=== PATIENT | female | born 1985 | race Caucasian/White ===

== ENCOUNTER 2017-09-02 22:22 | Emergency (ER) | payer MEDICAID ==
[2017-09-02] MEDS ORDERED: Cephalexin 500 MG Cap ONE (22:55)
--- NOTE | 2017-09-03 09:45 | EDM.PDOC ---
ED HPI GENERAL MEDICAL PROBLEM - General Chief Complaint: Upper Extremity Injury/Pain Stated Complaint: PAIN AFTER SURGERY Time Seen by Provider: 09/02/17 22:42 Source of Information: Reports: Patient History Limitations: Reports: No Limitations - History of Present Illness INITIAL COMMENTS - FREE TEXT/NARRATIVE: According to patient she had left hand CTS surgery [address] [facility]. She claims she has been doing some hand exercises for past 1 wk. She has noticed swelling over the palmar aspect of the wrist for 1 wk now. She got concerned that there might be infection and hence she came into emergency room to be seen. No tingling or numbness. No weakness in the hand. No swelling of the finger. No fever or chills. 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, NSAIDS Right Wrist Pain Score (Numeric/FACES): 7 - Related Data Allergies Allergy/AdvReac Type Severity Reaction Status Date / Time Penicillins Allergy Cannot Verified 09/02/17 22:39 Remember Home Meds: Home Meds NK [No Known Home Meds] 09/02/17 [History] Past Medical History HEENT History: Reports: Other (See Below) Other HEENT History: Tonsillitis Cardiovascular History: Reports: None Respiratory History: Reports: PE Gastrointestinal History: Reports: Other (See Below) Other Gastrointestinal History: Appendicitis Genitourinary History: Reports: None 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 parity: 3, gravity: 2, twins, 1 c section , 1 vaginal delivery Musculoskeletal History: Reports: Back Pain, Chronic, Fracture Other Musculoskeletal History: Left thumb sprain Neurological History: Reports: Concussion Endocrine/Metabolic History: Reports: None Other Hematologic History: Deep Vein Thrombosis, PE Oncologic (Cancer) History: Reports: None - Infectious Disease History Infectious Disease History: Reports: Chicken Pox, Measles - Past Surgical History HEENT Surgical History: Reports: Tonsillectomy Respiratory Surgical History: Reports: None Other Respiratory Surgeries/Procedures: 2014: PE while on control GI Surgical History: Reports: Appendectomy Female Surgical History: Reports: Section, Hysterectomy Other Female Surgeries/Procedures: Uterus and fallopian tubes removed. Other Neurological Surgeries/Procedures: concussion due to a fall Social & Family History - Tobacco Use Smoking Status *Q: Former Smoker Years of Tobacco use: 3 Packs/Tins Daily: 0.5 Used Tobacco, but Quit: Yes Month/Year Tobacco Last Used: March Second Hand Smoke Exposure: Yes - Alcohol Use Days Per Week of Alcohol Use: 0 - Recreational Drug Use Recreational Drug Use: No Review of Systems - Review of Systems Review Of Systems: See Below Constitutional: Denies: Chills, Fever Eyes: Denies: Blindness, Drainage Ears: Denies: Dizziness, Pain Nose: Denies: Congestion, Epistaxis, Pain Mouth/Throat: Denies: Throat Swelling, Painful Swallowing Respiratory: Denies: Shortness of Breath, Wheezing, Cough, Sputum Cardiovascular: Denies: Chest Pain, Syncope GI/Abdominal: Denies: Abdominal Pain, Nausea, Vomiting Musculoskeletal: Denies: Joint Pain, Joint Swelling Skin: Reports: Erythema. Denies: Pruritis, Rash ED EXAM, GENERAL - Physical Exam Exam: See Below Exam Limited By: No Limitations General Appearance: Alert, WD/WN, No Apparent Distress Eye Exam: Bilateral Eye: EOMI, PERRL Ears: Normal External Exam, Normal Canal, Hearing Grossly Normal, Normal TMs Extremities: Normal Range of Motion, No Pedal Edema, Normal Capillary Refill, Other (Left hand: there is surgical scar just distal fo the proximal palmar crease vertical, which has healed well. There is normal skin erythema of healing. there is minimal swelling over the palmar aspect of the wrist. No waarmth or tenderness. 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 She has been doing physical therapy and has developed swelling over the palmar aspect of the wrist over the past 1 wk. There is no sign of cellulitis, abscess or seroma. What Guicho am seeing is normal inflammatory changes of healing. Pt is concerned, hence I have started her on Keflex 500mg 4 times daily and advised to followup with Dr. Rebolledo tomorrow. Last Recorded V/S: Last Vital Signs Temp 98.7 F 09/02/17 22:30 Pulse 93 09/02/17 22:30 Resp 18 09/02/17 22:30 BP Pulse Ox 98 09/02/17 22:30 - Orders/Labs/Meds Meds: Medications Discontinued Medications Generic Name Dose Route Start Last Admin Trade Name Freq PRN Reason Stop Dose Admin Cephalexin 10,000 mg 09/02/17 22:55 Keflex .ROUTE 09/02/17 22:56 .STK-MED ONE Departure - Departure Time of Disposition: 10:55 Disposition: Home, Self-Care 01 Condition: Fair Clinical Impression: Swelling of joint, wrist, left - Discharge Information Instructions: Cephalexin tablets or capsules Forms: ED Department Discharge Additional Instructions: Follow up with Hand Surgeon as soon as possible. Call his office tomorrow to get in. Take Keflex 1 tab every 6 hours. - Problem List & Annotations (1) Swelling of joint, wrist, left SNOMED Code(s): 355728805 Code(s): M25.432 - EFFUSION, LEFT WRIST Status: Acute - Problem List Review Problem List Initiated/Reviewed/Updated: Yes - Assessment/Plan Assessment:: Left wrist swelling post CTS surgery Plan: Pt had CTS of left hand 4 wks ago. She has been doing physical therapy and has developed swelling over the palmar aspect of the wrist over the past 1 wk. There is no sign of cellulitis, abscess or seroma. What Guicho am seeing is normal inflammatory changes of healing. Pt is concerned, hence I have started her on Keflex 500mg 4 times daily and advised to followup with Dr. Rebolledo tomorrow.
== END 2017-09-02 22:55 | disposition home or self-care (01) ==
LOC: LB.ED 22:22
DX: M25.432 Effusion, left wrist (principal); Z88.0 Allergy status to penicillin; Z87.891 Personal history of nicotine dependence
CPT/HCPCS: 99283; A9270-GY

== ENCOUNTER 2019-07-25 13:31 | Emergency (ER) | payer MEDICAID ==
[2019-07-25] MEDS ORDERED: Sodium Chloride 0.9% 1,000 ML IV SCH (14:00)
--- NOTE | 2019-07-25 14:00 | EDM.PDOC ---
ED HPI GENERAL MEDICAL PROBLEM - General Chief Complaint: Fever Stated Complaint: FEVER, CONGESTION, CHEST PAIN Time Seen by Provider: 07/25/19 13:50 Source of Information: Reports: Patient, Family, RN - History of Present Illness INITIAL COMMENTS - FREE TEXT/NARRATIVE: 34 yo female presents with influenza like symptoms of cough, right ear pain, achiness all over, fever, and states daughter had Influenza diagnosis this weekend, She is with her mother today. States she feels she is dehydrated. She has the chills now. 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 parity: 3, gravity: 2, twins, 1 c section , 1 vaginal delivery Musculoskeletal History: Reports: Back Pain, Chronic, Fracture Other Musculoskeletal History: Left thumb sprain Neurological History: Reports: Concussion Endocrine/Metabolic History: Reports: None Other Hematologic History: Deep Vein Thrombosis, PE Oncologic (Cancer) History: Reports: None - Infectious Disease History Infectious Disease History: Reports: Chicken Pox, Measles - Past Surgical History HEENT Surgical History: Reports: Tonsillectomy Respiratory Surgical History: Reports: None Other Respiratory Surgeries/Procedures: 2014: PE while on control GI Surgical History: Reports: Appendectomy Female Surgical History: Reports: Section, Hysterectomy Other Female Surgeries/Procedures: Uterus and fallopian tubes removed. Other Neurological Surgeries/Procedures: concussion due to a fall Musculoskeletal Surgical History: Reports: Carpal Tunnel Other Musculoskeletal Surgeries/Procedures:: Right hand 2018 ED ROS GENERAL - Review of Systems Review Of Systems: See Below Constitutional: Reports: No Symptoms HEENT: Reports: Ear Pain. Denies: Throat Pain Respiratory: Reports: Cough Cardiovascular: Denies: Chest Pain, Dyspnea on Exertion ED EXAM, GENERAL - Physical Exam Exam: See Below Exam Limited By: No Limitations General Appearance: Alert, No Apparent Distress Ears: Normal External Exam, Normal Canal, Hearing Grossly Normal, Normal TMs Nose: Normal Inspection. No: Nasal Tenderness, Nasal Drainage Throat/Mouth: Normal Inspection, Normal Lips, No Airway Compromise Head: Atraumatic, Normocephalic Neck: Normal Inspection, Supple, Non-Tender Respiratory/Chest: Lungs Clear, Normal Breath Sounds Cardiovascular: Regular Rate, Rhythm, No Edema GI/Abdominal: Normal Bowel Sounds, Soft, Non-Tender Extremities: Normal Inspection, Normal Range of Motion, Non-Tender, No Pedal Edema, Other (achiness all over) Neurological: Alert, Oriented, Normal Cognition Psychiatric: Normal Affect, Normal Mood Skin Exam: Warm, Dry, Normal Color Course - Vital Signs Last Recorded V/S: Last Vital Signs Temp 99.9 F 07/25/19 13:39 Pulse 82 07/25/19 13:39 Resp 18 07/25/19 13:39 BP 87/51 L 07/25/19 13:39 Pulse Ox 100 07/25/19 13:39 - Orders/Labs/Meds Labs: Laboratory Tests 07/25/19 07/25/19 Range/Units 14:00 14:00 WBC 6.0 D (4.0-11.0) K/uL RBC 4.26 (3.80-5.80) M/uL Hgb 13.8 (11.5-16.5) g/dL Hct 40.2 (37.0-47.0) % MCV 94 (76-96) fL MCH 32.4 H (27.0-32.0) pg MCHC 34.3 (31.0-35.0) g/dL RDW 12.4 (11.0-16.0) % Plt Count 220 D (150-500) K/uL MPV 9.3 (6.0-10.0) fL Neut % (Auto) 69.0 (45.0-70.0) % Lymph % (Auto) 17.5 L (20.0-40.0) % [place] % (Auto) 12.3 H (3.0-10.0) % Eos % (Auto) 0.7 L (1.0-5.0) % Baso % (Auto) 0.5 (0.0-0.5) % Neut # (Auto) 4.14 (2.00-7.50) K/uL Lymph # (Auto) 1.05 L (1.50-4.00) K/uL [place] # (Auto) 0.74 (0.20-0.80) K/uL Eos # (Auto) 0.04 (0.04-0.40) K/uL Baso # (Auto) 0.03 (0.02-0.10) K/uL Sodium 140 (136-145) mmol/L Potassium 3.9 (3.5-5.1) mmol/L Chloride 104 (98-107) mmol/L Carbon Dioxide 25.1 (21.0-32.0) mmol/L Anion Gap 14.8 (5.0-15.0) mmol/L BUN 9 (8-26) mg/dL Creatinine 0.86 (0.55-1.02) mg/dL Est Cr Clr Drug Dosing TNP Estimated GFR (MDRD) > 60 (>60) MLS/MIN BUN/Creatinine Ratio 10.5 (6-25) Glucose 93 (74-100) mg/dL Calcium 8.3 L (8.5-10.1) mg/dL Meds: Medications Discontinued Medications Generic Name Dose Route Start Last Admin Trade Name Freq PRN Reason Stop Dose Admin Acetaminophen 650 mg 07/25/19 15:41 07/25/19 15:43 Tylenol PO 07/25/19 15:42 650 mg NOW ONE Administration Acetaminophen 650 mg 07/25/19 15:41 07/25/19 15:47 Tylenol PO 07/25/19 15:42 Not Given NOW ONE Acetaminophen Confirm 07/25/19 15:51 07/25/19 15:47 Tylenol Administered 07/25/19 15:52 Not Given Dose 650 mg .ROUTE .STK-MED ONE Sodium Chloride 1,000 mls @ 999 mls/hr 07/25/19 14:00 07/25/19 14:13 Normal Saline IV 999 mls/hr ASDIRECTED MILENA Administration - Re-Assessments/Exams Free Text/Narrative Re-Assessment/Exam: 07/25/19 Labs reviewed with pt and mom. No acute findings. Neg strep, neg influenza and no leukocytosis noted. Pt has been resting after fluids X 1 liter given. Tylenol given X 1. Departure - Departure Time of Disposition: 16:52 Disposition: Home, Self-Care 01 Condition: Good Clinical Impression: Acute bronchitis - Discharge Information *PRESCRIPTION DRUG MONITORING PROGRAM REVIEWED*: Not Applicable *COPY OF PRESCRIPTION DRUG MONITORING REPORT IN PATIENT MARCI: Not Applicable Prescriptions: Azithromycin 250 mg PO DAILY 7 Days #8 tablet Benzonatate 100 mg PO TID 7 Days #21 capsule Instructions: Azithromycin tablets, Upper Respiratory Infection, Adult, Easy-to -Read, Benzonatate capsules Referrals: PCP,None [Primary Care Provider] - Forms: ED Department Discharge Additional Instructions: - May go home. - Take Tessalon Jill, 1 capsule every 8 hours when needed for cough. - Take Azithromycin antibiotic: 2 tablets initially of 250 mg today, the 1 tablet daily for 6 days. - May take Tylenol 650 mg every 4-6 hours when needed for fever and generalized body aches . May take Advil in between if pain is still bad. - Increase fluid intake for hydration. Sepsis Event Note - Focused Exam Vital Signs: Vital Signs Temp Pulse Resp BP Pulse Ox 07/25/19 13:39 99.9 F 82 18 87/51 L 100 Date Exam was Performed: 07/25/19 Time Exam was Performed: 18:15 - Assessment/Plan Plan: Counseled on acute bronchitis, possible viral vs bacterial. With increase in symptoms will treat as bacterial and start Azithromycin daily X 7 days and Tessalon Perles 100 mg tid prn cough. If symptoms persist or worsen, pt should return to ER or F/U with PCP as needed.
[2019-07-25 14:24] VITALS: BP 87/51; PULSE 82
[2019-07-25] MEDS ORDERED: Acetaminophen 325 MG Tab PO ONE ×2 (15:41)
[2019-07-25] MEDS ORDERED: Acetaminophen 325 MG Tab ONE (15:51)
== END 2019-07-25 16:52 | disposition home or self-care (01) ==
LOC: LB.ED 13:31
DX: J20.9 Acute bronchitis, unspecified (principal); Z88.0 Allergy status to penicillin
CPT/HCPCS: 36415; 80048; 85025; 87430; 87804; 96360; 99283; A9270; J7030

== ENCOUNTER 2022-10-19 20:26 | Emergency (ER) | payer MEDICAID ==
[2022-10-19] MEDS ORDERED: Acetaminophen/HYDROcodone 325-5 MG Tab PO ONE (20:49)
[2022-10-19 21:05] LABS: BASOPHILS ABSOLUTE AUTO 0.03 K/uL (0.02-0.10); BASOPHILS PERCENT AUTO 0.2 % (0.0-0.5); EOSINOPHILS ABSOLUTE AUTO 0.23 K/uL (0.04-0.40); EOSINOPHILS PERCENT AUTO 1.9 % (1.0-5.0); HEMOGLOBIN 13.4 g/dL (11.5-16.5); LYMPHOCYTES ABSOLUTE AUTO 3.68 K/uL (1.50-4.00); LYMPHOCYTES PERCENT AUTO 29.9 % (20.0-40.0); MEAN CORPUSCULAR HEMOGLOBIN 32.8 pg (27.0-32.0); MEAN CORPUSCULAR HGB CONC 34.4 g/dL (31.0-35.0); MEAN CORPUSCULAR VOLUME 96 fL (76-96); MONOCYTES ABSOLUTE AUTO 1.04 K/uL (0.20-0.80); MONOCYTES PERCENT AUTO 8.5 % (3.0-10.0); NEUTROPHILS ABSOLUTE AUTO 7.31 K/uL (2.00-7.50); NEUTROPHILS PERCENT AUTO 59.5 % (45.0-70.0); PLATELET COUNT,PLT 333 K/uL (150-500); RED BLOOD CELL COUNT 4.08 M/uL (3.80-5.80); RED CELL DISTRIBUTION WIDTH 12.3 % (11.0-16.0); WHITE BLOOD CELL COUNT,WBC 12.3 K/uL (4.0-11.0)
[2022-10-19 21:23] LABS: A/G RATIO 0.9 (0.8-2.0); ALBUMIN 3.3 g/dL (3.4-5.0); ANION GAP 12.9 mmol/L (5.0-15.0); BILIRUBIN TOTAL 0.2 mg/dL (0.0-1.0); CALCIUM 8.7 mg/dL (8.5-10.1); CARBON DIOXIDE,CO2 24.6 mmol/L (21.0-32.0); CREATININE 0.81 mg/dL (0.55-1.02); EST CRCL DRUG DOSING (CG) 77.13 mL/min; POTASSIUM,K 3.5 mmol/L (3.5-5.1); PROTEIN TOTAL,TP 7.1 g/dL (6.4-8.2)
[2022-10-19] MEDS ORDERED: Acetaminophen/oxyCODONE 325-5 MG Tab ONE (22:00)
[2022-10-20 01:17] VITALS: BP 112/75; PULSE 86
== END 2022-10-19 22:10 | disposition home or self-care (01) ==
LOC: LB.ED 20:26
DX: M54.2 Cervicalgia (principal); Z88.0 Allergy status to penicillin
CPT/HCPCS: 36415; 70490; 80053; 85025; 99283; 99284; A9270-GY

== ENCOUNTER 2022-12-04 21:59 | Emergency (ER) | payer MEDICAID ==
[2022-12-04 22:44] LABS: BASOPHILS ABSOLUTE AUTO 0.05 K/uL (0.02-0.10); BASOPHILS PERCENT AUTO 0.5 % (0.0-0.5); EOSINOPHILS ABSOLUTE AUTO 0.27 K/uL (0.04-0.40); EOSINOPHILS PERCENT AUTO 2.9 % (1.0-5.0); HEMATOCRIT 38.1 % (37.0-47.0); HEMOGLOBIN 12.9 g/dL (11.5-16.5); LYMPHOCYTES ABSOLUTE AUTO 4.24 K/uL (1.50-4.00); MEAN CORPUSCULAR HEMOGLOBIN 33.3 pg (27.0-32.0); MEAN CORPUSCULAR HGB CONC 33.9 g/dL (31.0-35.0); MEAN CORPUSCULAR VOLUME 98 fL (76-96); MEAN PLATELET VOLUME 8.8 fL (6.0-10.0); MONOCYTES ABSOLUTE AUTO 0.78 K/uL (0.20-0.80); MONOCYTES PERCENT AUTO 8.5 % (3.0-10.0); NEUTROPHILS ABSOLUTE AUTO 3.87 K/uL (2.00-7.50); NEUTROPHILS PERCENT AUTO 42.1 % (45.0-70.0); PLATELET COUNT,PLT 347 K/uL (150-500); RED BLOOD CELL COUNT 3.87 M/uL (3.80-5.80); RED CELL DISTRIBUTION WIDTH 12.6 % (11.0-16.0); WHITE BLOOD CELL COUNT,WBC 9.2 K/uL (4.0-11.0)
[2022-12-04] MEDS ORDERED: Ketorolac 60 MG/2 ML SDV IM ONE (22:55)
[2022-12-04 22:58] LABS: ANION GAP 10.6 mmol/L (5.0-15.0); BLOOD UREA NITROGEN,BUN 13 mg/dL (8-26); BUN/CREATININE RATIO 14.8 (6-25); CALCIUM 8.5 mg/dL (8.5-10.1); CARBON DIOXIDE,CO2 28.2 mmol/L (21.0-32.0); CHLORIDE,CL 107 mmol/L (98-107); CREATININE 0.88 mg/dL (0.55-1.02); ESTIMATED GFR 86 mL/min (>60); GLUCOSE RANDOM 99 mg/dL (74-100); POTASSIUM,K 3.8 mmol/L (3.5-5.1); SODIUM,NA 142 mmol/L (136-145)
[2022-12-04] MEDS ORDERED: Gabapentin 100 MG Cap ONE (23:00)
[2022-12-04 23:04] VITALS: BP 122/70; PULSE 92
[2022-12-04 23:06] LABS: APPEARANCE,URINE CLEAR (CLEAR); BILIRUBIN,URINE NEGATIVE (NEGATIVE); COLOR,URINE YELLOW; GLUCOSE,URINE NEGATIVE (NEGATIVE); KETONES,URINE NEGATIVE (NEGATIVE); LEUKOCYTE ESTERASE,URINE NEGATIVE (NEGATIVE); NITRITE,URINE NEGATIVE (NEGATIVE); OCCULT BLOOD,URINE NEGATIVE (NEGATIVE); PH,URINE 8.5 (5.0-8.0); PROTEIN,URINE 30 mg/dL (NEGATIVE); UROBILINOGEN,URINE 0.2 E.U./dL (0.2-1.0)
[2022-12-04 23:18] LABS: AMORPHOUS SEDIMENT,URINE MODERATE /HPF; BACTERIA,URINE FEW /HPF; MUCUS,URINE FEW /HPF; RBC,URINE NOT SEEN /HPF; SQUAMOUS EPITHELIAL CELLS,UR FEW /HPF; WBC,URINE NOT SEEN /HPF
[2022-12-04 23:50] LABS: SEDIMENTATION RATE MANUAL 7 mm/hr (0-20)
== END 2022-12-05 | disposition home or self-care (01) ==
LOC: LB.ED 21:59
DX: M54.50 Low back pain, unspecified (principal); Z88.0 Allergy status to penicillin
CPT/HCPCS: 36415; 80048; 81001; 85025; 85651; 96372; 99284; A9270-GY; J1885

== ENCOUNTER 2024-08-14 15:08 | Emergency (ER) | payer BC ==
[2024-08-14] MEDS: Ibuprofen 600 MG Tab PO ONE (15:36)
[2024-08-14 15:48] VITALS: BP 108/81; PULSE 86
== END 2024-08-14 15:41 | disposition home or self-care (01) ==
LOC: LB.ED 15:08
DX: J06.9 Acute upper respiratory infection, unspecified (principal); H65.03 Acute serous otitis media, bilateral; Z90.49 Acquired absence of other specified parts of digestive tract; Z87.891 Personal history of nicotine dependence; Z88.0 Allergy status to penicillin; Z79.899 Other long term (current) drug therapy
CPT/HCPCS: 99283; A9270-GY

== ENCOUNTER 2024-12-10 17:23 | Emergency (ER) | payer BC ==
[2024-12-10] MEDS ORDERED: Sodium Chloride 0.9% 10 ML Syringe FLUSH PRN (19:19)
[2024-12-10] MEDS: Ketorolac 15 MG/ML SDV IVPUSH ONE (19:20)
[2024-12-10] MEDS: Ondansetron 4 MG/2 ML SDV IVPUSH ONE (19:26)
[2024-12-10] MEDS: HYDROmorphone 1 MG/ML Syringe IM ONE (19:30)
[2024-12-10 19:44] LABS: BASOPHILS ABSOLUTE AUTO 0.04 K/uL (0.02-0.10); BASOPHILS PERCENT AUTO 0.2 % (0.0-0.5); EOSINOPHILS ABSOLUTE AUTO 0.06 K/uL (0.04-0.40); EOSINOPHILS PERCENT AUTO 0.3 % (1.0-5.0); HEMATOCRIT 41.7 % (37.0-47.0); HEMOGLOBIN 14.4 g/dL (11.5-16.5); LYMPHOCYTES ABSOLUTE AUTO 4.72 K/uL (1.50-4.00); LYMPHOCYTES PERCENT AUTO 26.9 % (20.0-40.0); MEAN CORPUSCULAR HEMOGLOBIN 32.6 pg (27.0-32.0); MEAN CORPUSCULAR HGB CONC 34.5 g/dL (31.0-35.0); MEAN CORPUSCULAR VOLUME 94 fL (76-96); MEAN PLATELET VOLUME 9.2 fL (6.0-10.0); MONOCYTES ABSOLUTE AUTO 1.46 K/uL (0.20-0.80); MONOCYTES PERCENT AUTO 8.3 % (3.0-10.0); NEUTROPHILS ABSOLUTE AUTO 11.25 K/uL (2.00-7.50); NEUTROPHILS PERCENT AUTO 64.3 % (45.0-70.0); PLATELET COUNT,PLT 347 K/uL (150-500); RED BLOOD CELL COUNT 4.42 M/uL (3.80-5.80); RED CELL DISTRIBUTION WIDTH 12.5 % (11.0-16.0); WHITE BLOOD CELL COUNT,WBC 17.5 K/uL (4.0-11.0)
[2024-12-10] MEDS: HYDROmorphone 2 MG/ML Syringe IVPUSH ONE (19:55)
[2024-12-10 19:57] LABS: ALANINE AMINOTRANSFERASE,ALT 26 U/L (12-78); ALBUMIN 3.9 g/dL (3.4-5.0); ALKALINE PHOSPHATASE 75 U/L (46-116); ANION GAP 11.8 mmol/L (5.0-15.0); ASPARTATE AMNIOTRANSFERASE,AST 20 U/L (15-37); BILIRUBIN TOTAL 0.4 mg/dL (0.0-1.0); BLOOD UREA NITROGEN,BUN 12 mg/dL (8-26); BUN/CREATININE RATIO 8.8 (6-25); CALCIUM 9.5 mg/dL (8.5-10.1); CARBON DIOXIDE,CO2 27.1 mmol/L (21.0-32.0); CHLORIDE,CL 103 mmol/L (98-107); CREATININE 1.36 mg/dL (0.55-1.02); ESTIMATED GFR 50 mL/min (>60); GLUCOSE RANDOM 98 mg/dL (74-100); POTASSIUM,K 3.9 mmol/L (3.5-5.1); SODIUM,NA 138 mmol/L (136-145)
[2024-12-10] MEDS: Ondansetron 4 MG/2 ML SDV ONE (21:04)
[2024-12-10] MEDS: Prochlorperazine 10 MG/2 ML SDV IVPUSH ONE (22:36)
[2024-12-11 00:23] VITALS: BP 113/62; PULSE 88
[2024-12-11] MEDS: Acetaminophen/oxyCODONE 325-5 MG Tab PO PRN (00:47)
[2024-12-11] MEDS: Ketorolac 15 MG/ML SDV IVPUSH ONE (00:48)
[2024-12-18 17:49] LABS: A. PHAGOCYTOPHILUM AB, IGG <1:80 (<1:80); BABESIA MICROTI IGG < 1:16 (< 1:16)
== END 2024-12-11 01:35 ==
LOC: LB.ED 17:23
DX: M25.551 Pain in right hip (principal); K21.9 Gastro-esophageal reflux disease without esophagitis; E66.9 Obesity, unspecified; Z88.0 Allergy status to penicillin; Z88.1 Allergy status to other antibiotic agents; Z79.899 Other long term (current) drug therapy; Z87.891 Personal history of nicotine dependence; Z90.49 Acquired absence of other specified parts of digestive tract; Z90.710 Acquired absence of both cervix and uterus; Z68.30 Body mass index [BMI] 30.0-30.9, adult
CPT/HCPCS: 36415; 73502-RT; 74176; 80053; 84145; 84703; 85025; 85651; 86140; 86618; 86666; 86753; 96372; 96374; 96375; 96376; 99284; 99285-25; A9270-GY; J0780; J1171; J1885; J2405